=== PATIENT | male | born 1945 | race Caucasian/White ===

== ENCOUNTER 2020-11-10 08:17 | Day surgery (SDC) | payer MEDICARE, OTHER ==
[2020-11-08 15:59] LABS: BASOPHILS % (AUTO) 1.4 % (0.0-5.0); EOSINOPHILS % (AUTO) 6.9 % (0.0-8.0); HEMATOCRIT 46.4 % (42-54); LYMPHOCYTES % (AUTO) 28.3 % (21.0-51.0); MEAN CORPUSCULAR HGB CONC 34.5 g/dL (32.0-36.0); MEAN CORPUSCULAR VOLUME 89.9 fL (79-99); MONOCYTES % (AUTO) 7.8 % (3.0-13.0); PLATELET COUNT (AUTO) 164 K/uL (130-400); RED BLOOD CELL COUNT(AUTO) 5.16 MIL/uL (4.50-6.20); RED CELL DISTRIBUTION WIDTH 12.6 % (11.0-15.5); WHITE BLOOD COUNT (AUTO) 8.1 K/uL (4.8-10.8)
[2020-11-08 16:09] LABS: CREATININE 1.1 mg/dL (0.5-1.5); POTASSIUM 5.1 mmol/L (3.5-5.1)
[2020-11-09 12:15] VITALS: BP 131/76
[2020-11-10] VITALS (17 sets, daily range): BP systolic 65–127; BP diastolic 41–76
[~2020-11-10] VITALS: Ht 175.3 cm; Wt 73.2 kg
[~2020-11-10 08:17] MED LIST: SIMV-43 PO
[2020-11-10] MEDS ORDERED: LIDOCAINE PF 2% 5ML ABBOJECT ONE (08:43)
[2020-11-10] MEDS ORDERED: FENTANYL CITRATE PF 50 MCG/1 ML 2ML VIAL ONE (08:44)
[2020-11-10] MEDS: LACTATED RINGERS 1000ML 1,000 ML IV SCH ×2 (08:44→10:02)
[2020-11-10] MEDS ORDERED: PROPOFOL 10 MG/ML 20ML VIAL IV ONE (08:44)
[2020-11-10] MEDS: CEFAZOLIN SODIUM 1 GM VIAL IVP ONE ×2 (08:45→09:10)
[2020-11-10] MEDS ORDERED: GLYCOPYRROLATE 1 MG/5 ML SYRINGE ONE (10:13)
== END 2020-11-10 12:08 | disposition home or self-care (01) ==
LOC: DAH 08:17
PROVIDERS: ATTEND Orthopaedic Surgery
DX: S82.145A Nondisplaced bicondylar fracture of left tibia, initial encounter for closed fracture (principal); Z20.822 Contact with and (suspected) exposure to COVID-19; M22.42 Chondromalacia patellae, left knee; E78.5 Hyperlipidemia, unspecified; Z79.899 Other long term (current) drug therapy; Z98.890 Other specified postprocedural states; X58.XXXA Exposure to other specified factors, initial encounter; Y93.89 Activity, other specified; Y92.89 Other specified places as the place of occurrence of the external cause
CPT/HCPCS: 29855; 36415; 73590; 80048; 85025; 87426; 93005; A4215; A4221; A4222; A4223; A4606; A4649 ×3; A4663; A4930 ×2; A5120; A6223; A6260; C1713; J0690; J2001; J2704; J3010; J3490; J7120; U0003